=== PATIENT | female | born 1975 | race Hispanic/Latino ===

== ENCOUNTER → 2019-10-27 15:03 | Outpatient (CLI) | payer OTHER, SELFPAY ==
[2019-10-27 16:41] LABS: Add Manual Diff / Slide Review NO; Basophils Absolute Auto 0 /uL (0-100); Basophils Percent Auto 0.4 % (0-2); Eosinophils Absolute Auto 100 /uL (0-450); Eosinophils Percent Auto 1.2 % (2-4); Hematocrit 32.2 % (36-46); Hemoglobin 10.3 g/dL (12.0-16.0); Lymphocytes Absolute Auto 2000 /uL (1100-4500); Lymphocytes Percent Auto 25.5 % (25-40); Mean Corpuscular Volume 96.8 fL (80-100); Monocytes Absolute Auto 500 /uL (0-900); Monocytes Percent Auto 6.3 % (3-14); Neutrophils Absolute Auto 5200 /uL (1500-7000); Neutrophils Percent Auto 66.6 % (50-75); Platelet Count 278 X10^3/uL (150-400); Red Blood Cell Count 3.32 X10^6/uL (4.0-5.2); Red Cell Distribution Width 20.8 % (11.6-14.8); White Blood Cell Count 7.8 X10^3/uL (4.5-11.0)
[2019-10-27 17:50] LABS: Anisocytosis 1+; Stomatocytes 1+
== END ==
PROVIDERS: PCP Family Medicine; Referring Provider Specialist; Visit Provider Specialist
DX: D62 Acute posthemorrhagic anemia (principal)
CPT/HCPCS: 36415; 85025

== ENCOUNTER → 2019-11-08 10:56 | Outpatient (CLI) | payer OTHER, SELFPAY ==
[2019-11-08 22:16] LABS: COVID19 Sendout Not Detected (Not Detect)
== END ==
PROVIDERS: PCP Family Medicine; Visit Provider Registered Nurse
DX: Z01.812 Encounter for preprocedural laboratory examination (principal)
CPT/HCPCS: 87635

== ENCOUNTER 2019-11-10 10:17 | Day surgery (SDC) | payer OTHER, SELFPAY ==
[2019-11-02 08:35] VITALS: BMI 34.2
[2019-11-10] VITALS (11 sets, daily range): BP systolic 125–169; BP diastolic 68–93; PULSE 63–80; RESP 9–22; TEMP 36.1–37; O2SAT 96–100; BMI 33.0
--- NOTE | 2019-11-10 | PATH_ITS ---
[facility] Accession Number: [id number] . 01 Material submitted: . PART A: cervix - EXTERNAL CERVICAL OS PART B: cervix - EXTERNAL CERVICAL OS AT 9 O'CLOCK PART C: cervix - DEEP EXTERNAL CERVICAL OS PART D: endocervix - ENDOCERVICAL CURETTINGS PART E: endometrium - ENDOMETRIAL CURETTINGS . 02 Diagnosis: A. Cervix, External Os, Excision: High-grade squamous intraepithelial neoplasia (ANDRIA 2) present at endocervical inked margin. Active inflammation is present consistent with prior procedure. No evidence of invasive carcinoma. . B. Cervix, External Os At 9 O'Clock, Excision: Transformation zone mucosa with reactive epithelial and stromal changes consistent with prior procedure. No evidence of neoplasia. . C. Cervix, Deep External Os, Excision: Endocervical mucosa with no evidence of neoplasia. . D. Endocervical, Curettage: Squamous and endocervical epithelium with no evidence of neoplasia. . E. Endometrium, Biopsy: Disordered proliferative endometrium with patchy features suggestive of glandular and stromal breakdown. Adenomyosis. No evidence of neoplasia or hyperplasia. [facility] 11/15/2019 1350 Local . 02 Electronically signed: . Leanne Mao MD, Pathologist NPI- [id number] . 01 Gross description: . (A) Received in formalin, labeled #1 external cervical os, suture @ 6 o'clock, is a piece of cervical tissue (2.5 x 1.4 x 0.5 cm) with smith-white smooth shiny mucosa. No nodules, masses or lesions are identified. A suture is present designating 6 o'clock. The possible endocervical margin is inked orange and the possible ectocervical and stromal margins are inked blue. Serially sectioned and entirely submitted from left to right (presumably 9 to 3 o'clock) as follows: (A1) 9 to 6 o'clock; (A2) 6 to 3 o'clock. (B) Received in formalin, labeled external os @ 9 o'clock, is an unoriented piece of cervical tissue (1.3 x 0.5 x 0.2 cm) with fisher-pink smooth shiny mucosa. No nodules, masses or lesions are identified. The tissue cannot be oriented; therefore, the resection margin is inked blue. Serially sectioned and entirely submitted in cassette B1. (C) Received in formalin, labeled deep external os, is an unoriented intact cervical excision (diameter-1.7 cm by 1.0 cm, 0.2 cm in depth) with smith-white smooth shiny mucosa. No nodules, masses or lesions are identified. The possible endocervical margin is inked orange and the possible ectocervical and stromal margins are inked blue. Radially sectioned and entirely submitted in cassettes C1-C3. (D) Received in formalin, labeled endocervical curetting, is turbid mucoid material containing multiple fragments of red-brown tissue (2.0 x 0.5 x 0.1 cm in aggregate). Filtered and entirely submitted in cassette D1. (E) Received in formalin, labeled endometrial curetting, are multiple pieces of smith rubbery tissue (5.5 x 2.5 x 0.3 cm in aggregate). Entirely submitted in cassettes E1-E3. ([id number]) /MRV 11/11/2019 1250 Local . 02 Microscopic: . D. A p16 immunohistochemical stain was performed to characterize cells of interest, and is negative for block nuclear and cytoplasmic reactivity in the area of interest, which mitigates against and interpretation of high-grade squamous intraepithelial lesion. The control stain showed appropriate reactivity. . * This test was developed and its performance characteristics determined by [employer]. It has not been cleared or approved by the U.S. Food and Drug Administration. The FDA has determined that such clearance or approval is not necessary. This test is used for clinical purposes. It should not be regarded as investigational or for research. . . 02 Pathologist provided ICD-10: N87.1 . 02 CPT . 152014, 346460, 722254, 713717, 103035, X17244 Performed at: 01 [facility] [address] [place] [address], [place], [place] [id number] MD Caden Ashley MD Phone: [phone] Performed at: [address] [facility] [id number] [place], [place] [id number] MD Leanne Mao MD Phone: [phone]
[2019-11-10] MEDS: LACTATED RINGERS 1,000 ML 42 ML IV ×2 (10:46→12:45)
[2019-11-10] MEDS: ACETAMINOPHEN 325 MG TABLET 975 MG PO (10:48)
[2019-11-10] MEDS: GABAPENTIN 300 MG CAPSULE PO (10:48)
--- NOTE | 2019-11-10 11:40 | PM.PREOP ---
Pre-operative Note COVID-19 COVID-19 status: Negative Result date/Date tested (Pos, Neg/Pending): 11/08/19 Interval Note History & Physical reviewed/Exam performed by Physician: Yes Changes to H&P: Yes H&P completed within 30 days and has changed as indicated here:: Patient with ANDRIA 3 on colpo directed biopsies. We will perform a LEEP procedure as well as a hysteroscopy. The procedure discussed with the patient and the consent form addendum signed with the patient
[2019-11-10] MEDS: BUPIVACAINE 0.5% W/ EPI (PF) 10 ML VIAL 30 ML INJ (12:45)
--- NOTE | 2019-11-10 12:54 | PM.OP.1 ---
Operative Date/Time/Diagnoses Date of procedure: 11/10/19 Time of procedure: 12:54 Pre-op diagnosis: Menorrhagia and ANDRIA 3 on colpo directed biopsy Post-op diagnosis: same Procedure & Clinicians Procedure: LEEP procedure, hysteroscopy D&C with resection of endometrial polyp Same procedure as scheduled: Yes Indications: Menorrhagia unresponsive to Provera therapy, ANDRIA 3 on colpo directed biopsies Surgeon: Mayte Camp Click Yes if Unassisted: Yes Anesthesia Type: General Operative Notes Findings: Normal exam under anesthesia. Endometrial polyp on the anterior wall of the uterus near the internal os Closure Type: not applicable Specimen(s): other (External LEEP procedure, 9:00 a.m. biopsy, ECC and endometrial curettage and biopsy) Estimated Blood Loss (mL): 10 Blood products transfused: none Procedure in detail: Patient was brought to the operating room she underwent general. She was placed in low stirrups. A coated bivalve speculum was placed into the vagina. The cervix was injected with 10 cc 0.5% Marcaine with epinephrine. A coated single-tooth tenaculum was placed on the anterior lip of the cervix. The loop set at 60 W of cutting was used to remove the entire squamocolumnar junction. There was minimal tissue at 9:00 a.m. so no additional biopsy at 9:00 a.m. was performed. A slightly deeper section was taken of the endocervical canal. An ECC was performed. The tissue was cauterized external to the LEEP with ball cautery to extend the treatment zone. The uterus dilated to #8 Hegar dilator. The hysteroscope was placed into the uterus with a sorbitol solution running and under constant suction. The resecting loop set at 80 W of cutting was used to resect the polyp down to the level of the endometrium. A endometrial curettage was performed. The polyp and the endometrial curettage was sent to pathology. The patient went to recovery room in good condition counts of instruments and sponges were correct. The sorbitol solution I=O approximately 2000 mL. Complications: none Post-operative Condition: stable Disposition: same day surgery Plan for aftercare: Treatment and follow-up based on biopsy results. Patient is to call if she has heavy bleeding.
[2019-11-10] MEDS: fentaNYL 100 MCG/2 ML INJ IV ×2 (13:04→13:16)
[2019-11-10] MEDS: OXYCODONE IR 5 MG TABLET PO (13:39)
--- NOTE | 2019-11-10 14:06 | SUR.PHASEII ---
Pt was able to successfully void. Tolerated oral pain medication well. Dr Camp notified of pts pending departure.
== END 2019-11-10 14:22 | disposition home or self-care (01) ==
PROVIDERS: PCP Family Medicine; Referring Provider Specialist; Visit Provider Specialist
PROC: 0UDB8ZZ Extraction of Endometrium, Via Natural or Artificial Opening Endoscopic (ICD-10-PCS; CPT 58558; principal; 2019-11-10 11:30)
PROC: 0UBC7ZZ Excision of Cervix, Via Natural or Artificial Opening (ICD-10-PCS; CPT 57522; 2019-11-10 11:30)
DX: N87.1 Moderate cervical dysplasia (principal); F17.210 Nicotine dependence, cigarettes, uncomplicated; F41.9 Anxiety disorder, unspecified; D62 Acute posthemorrhagic anemia
CPT/HCPCS: 58558; 57522; J1100; J1885; J2250; J2405; J2704; J3010

== ENCOUNTER 2020-02-02 01:13 | Emergency (ER) | payer OTHER, SELFPAY ==
[2020-02-02] VITALS (7 sets, daily range): BP systolic 163–195; BP diastolic 72–104; PULSE 60–77; RESP 26; TEMP 36.7; O2SAT 96–98
--- NOTE | 2020-02-02 01:17 | ED.HA ---
HPI - Headache General Chief Complaint: Headache Stated Complaint: head pain left side,shortness of breath Time Seen by Provider: 02/02/20 01:17 Source: patient and family Mode of arrival: Ambulatory Limitations: no limitations History of Present Illness HPI Narrative: 44-year-old female smoker with no chronic medical problems presents with her and a chief complaint of a left-sided headache, 10/10, that started a few hours ago. She was driving and not in any particular stressful moment. She denies other neurologic symptoms such as blurred vision, trouble speech nor numbness, tingling or weakness. She denies any fever or chills and has no neck pain. She does state that when the headache becomes severe that she develops some chest pressure. She denies any history of blood pressure problems. She denies any new medications or dietary change. MD Complaint: headache Onset (ago): hour(s) Onset description: sudden Location: left Severity: moderate Quality: aching and throbbing Relieving factors: nothing Exacerbating factors: none Context: occurred at rest Other symptoms: chest pain Treatments prior to arrival: none Related Data Home Medications Medication Instructions Recorded Confirmed ferrous fumarate 325 mg (106 mg 325 mg PO BID 10/27/19 11/10/19 iron) tablet Centrum Women 1 tab PO DAILY 11/10/19 11/10/19 ascorbic acid (vitamin C) [Vitamin 1,000 mg PO DAILY 11/10/19 11/10/19 C] Previous Rx's Medication Instructions Recorded amlodipine 5 mg PO DAILY #20 tab 02/02/20 Allergies Allergy/AdvReac Type Severity Reaction Status Date / Time No Known Drug Allergies Allergy Verified 11/10/19 10:50 Review of Systems Constitutional Constitutional: Denies chills, Denies fatigue, Denies fever(s), Denies frequent falls, Reports headache(s), Denies lethargy and Denies weakness Eyes Eyes: Denies change in vision, Denies eye discharge, Denies irritation and Denies loss of vision ENT Ears, Nose, Mouth, and Throat: Denies change in voice, Denies dizziness, Reports headache(s), Denies neck pain, Denies sore throat and Denies throat swelling Cardiovascular Cardiovascular: Reports chest pain, Denies irregular heart rhythm, Denies lightheadedness, Denies palpitations, Denies dyspnea, Denies dyspnea on exertion and Denies orthopnea Respiratory Respiratory: Denies cough, Denies dyspnea, Denies dyspnea on exertion and Denies wheezing Gastrointestinal Gastrointestinal: Denies abdominal pain, Denies change in bowel habits, Denies diarrhea, Denies nausea and Denies vomiting Musculoskeletal Musculoskeletal: Denies neck pain and Denies numbness Integumentary/Breasts Skin/Breast: Denies pruritus, Denies erythema, Denies rash and Denies wounds Neurologic Neurologic: Denies behavioral changes, Denies confusion, Denies dizziness, Denies frequent falls, Reports headache(s), Denies loss of vision, Denies numbness and Denies weakness Psychiatric Psychiatric: Denies anxiety, Denies behavioral changes, Denies confusion, Denies depression, Denies homicidal ideation and Denies suicidal ideation Endocrine Endocrine: Denies fatigue, Denies flushing and Denies palpitations Hematologic/Lymphatic Hematologic/Lymphatic: Denies easy bruising Allergic/Immunologic Allergic/Immunologic: Denies urticaria, Denies throat swelling and Denies wheezing Patient History Medical History Anxiety (Acute) delivery delivered (Acute) Surgical History Anesthesia (Resolved) History of appendectomy (Resolved ~1985) History of appendectomy (Acute) History of section (Resolved ~1999) Family History Father Accident Mother Cancer Hypertension Stroke Brother Cancer Brother Diabetes mellitus Hypertension Social History household members: spouse Smoking Status: Current every day smoker alcohol intake: current Smoking Status: Current every day smoker alcohol intake frequency: a few times a month Substance Use Type: does not use Exam Narrative Exam Narrative: GENERAL: [] year old patient appears stated age. Well-nourished, well-developed patient, in mild distress. HEAD: Atraumatic. Normocephalic. EYES: Pupils equal round and reactive. Extraocular motions intact. No scleral icterus. No injection or drainage. ENT: Nose without bleeding, purulent drainage. Throat without erythema, tonsillar hypertrophy or exudate. Airway patent. NECK: Trachea midline. Non tender CARDIOVASCULAR: Regular rate and rhythm without murmurs, gallops, or rubs. RESPIRATORY: Clear to auscultation. Breath sounds equal bilaterally. No wheezes, rales, or rhonchi. GASTROINTESTINAL: Abdomen soft, non-tender, nondistended. EXTREMITIES: No edema or joint tenderness. BACK: Nontender without deformity or crepitance. No flank tenderness. NEURO: AOx3. SKIN: No rash or erythema of visible areas NIH Stroke Scale 1a. LOC: Patient is alert and keenly responsive (0) 1b. LOC Questions: Patient answers both LOC questions accurately (0) 1c. LOC Commands: Patient performs both tasks correctly (0) 2. Best Gaze: Normal (0) 3. Visual: No visual loss (0) 4. Facial palsy: Normal symmetrical movements (0) 5. Motor arm: No drift (0) 6. Motor leg: No drift (0) 7. Limb ataxia: Absent (0) 8. Sensory: Normal (0) 9. Best language: No aphasia; normal (0) 10. Dysarthria: Normal (0) 11. Extinction and inattention: No abnormality (0) NIHSS: 0 Initial Vital Signs Initial Vital Signs: Vital Signs Temperature 98.0 F 02/02/20 01:25 Pulse Rate 65 02/02/20 01:25 Blood Pressure 195/104 H 02/02/20 01:25 Pulse Oximetry 97 02/02/20 01:25 Course Orders Ordered: ED Orders 02/02/20 01:30 CT head/brain wo con Stat XR chest 1V Stat Basic Metabolic Panel Stat Complete Blood Count AUTO DIFF Stat NT-proBNP (BNP-Adult 18+) Stat Prothrombin Time INR Stat Troponin & CK Cardiac Panel Stat 02/02/20 01:42 EKG-12 Lead Stat Sodium Chloride (Normal Saline 0.9%) 1,000 mls @ 125 mls/hr IV CONT ANIKA Last Infusion: 02/02/20 04:24 Dose: 125 mls/hr Documented by: Admin: 02/02/20 02:07 Dose: 125 mls/hr Documented by: KETANFARL Discontinued Medications Amlodipine Besylate (Norvasc) 5 mg PO NOW ONE Stop: 02/02/20 02:43 Last Admin: 02/02/20 02:48 Dose: 5 mg Documented by: KETANFARL Diphenhydramine HCl (Benadryl) 25 mg IV NOW ONE Stop: 02/02/20 01:47 Last Admin: 02/02/20 02:06 Dose: 25 mg Documented by: ELDA Hydralazine HCl (Apresoline) 10 mg IV NOW ONE Stop: 02/02/20 02:43 Last Admin: 02/02/20 02:48 Dose: 10 mg Documented by: ELDA Ketorolac Tromethamine (Toradol) 15 mg IV NOW ONE Stop: 02/02/20 01:47 Last Admin: 02/02/20 02:06 Dose: 15 mg Documented by: ELDA Metoclopramide HCl (Reglan) 10 mg IV NOW ONE Stop: 02/02/20 01:47 Last Admin: 02/02/20 02:06 Dose: 10 mg Documented by: ELDA Reevaluation(s) Reevaluation #1: Patient re-evaluated once blood pressure down in the 160s. Her headache is much better but still having some symptoms Time: 01:56 Reevaluation #2: headache worsening again, BP found to be 215. Patient given amlodipine and hydralazine with sustained improvement in BP and WATTERS Vital Signs Vital signs: Vital Signs - 8 hr 02/02/20 01:25 02/02/20 01:30 02/02/20 01:31 Temperature 98.0 F Pulse Rate 65 77 77 Respiratory Rate Blood Pressure 195/104 H 163/72 H Pulse Oximetry 97 98 98 02/02/20 02:00 02/02/20 02:46 02/02/20 02:48 Temperature Pulse Rate 60 61 61 Respiratory Rate 26 H Blood Pressure 170/74 H 170/74 H Pulse Oximetry 96 98 02/02/20 03:53 Temperature Pulse Rate 66 Respiratory Rate Blood Pressure 165/75 H Pulse Oximetry 97 MDM - Headache Lab Data Result diagrams: 02/02/20 01:30 02/02/20 01:30 Labs: Lab Results 02/02/20 02/02/20 02/02/20 Range/Units 01:30 01:30 01:30 WBC 8.7 (4.5-11.0) X10^3/uL RBC 4.43 (4.0-5.2) X10^6/uL Hgb 14.5 (12.0-16.0) g/dL Hct 41.7 (36-46) % MCV 94.1 (80-100) fL MCH 32.8 (26-34) PG MCHC 34.9 (30-36) % RDW 12.9 (11.6-14.8) % Plt Count 216 (150-400) X10^3/uL Neut % (Auto) 82.6 H (50-75) % Lymph % (Auto) 13.0 L (25-40) % [place] % (Auto) 3.4 (3-14) % Eos % (Auto) 0.3 L (2-4) % Baso % (Auto) 0.7 (0-2) % Neut # (Auto) 7200 H (5823-7852) /uL Lymph # (Auto) 1100 (3006-6973) /uL [place] # (Auto) 300 (0-900) /uL Eos # (Auto) 0 (0-450) /uL Baso # (Auto) 100 (0-100) /uL PT 11.6 (10.1-12.7) SECONDS INR 1.0 (0.9-1.3) Sodium 136 L (137-145) mmol/L Potassium 4.3 (3.4-5.1) mmol/L Chloride 103 (98-107) mmol/L Carbon Dioxide 22 (22-32) mmol/L BUN 11 (7-17) mg/dL Creatinine 0.40 L (0.52-1.04) mg/dL Estimated GFR > 60.0 (>60) mL/min BUN/Creatinine Ratio 27.5 H (6-22) Glucose 139 H (70-100) mg/dL Calcium 10.1 (8.4-10.2) mg/dL Total Creatine Kinase 38 (30-135) U/L CK-MB (CK-2) TNP CK-MB (CK-2) Rel Index TNP Troponin I < 0.012 (0.01-0.034) ng/mL NT-Pro-B Natriuret Pep 54 (<125) pg/mL Imaging Data CT scan - head: Radiologist's Impression: NAP Discharge Plan Departure Patient Disposition: Home Clinical Impression: Headache Qualifiers: Headache type: unspecified Headache chronicity pattern: acute headache Intractability: not intractable Qualified Code(s): R51 - Headache Hypertension Qualifiers: Hypertension type: unspecified Qualified Code(s): I10 - Essential (primary) hypertension Discharge Date/Time: 02/02/20 04:16 Instructions: Essential Hypertension, DI for Headache Activity Restrictions/Additional Instructions: *You have been diagnosed with [hypertension and headache] *What to do: *Take medications as directed *Follow up with your primary care provider in 2-3 days, call for an appointment. Let them know you were seen in the Emergency Department and that we ask that you be seen in follow up *Return to ER if you should have any new, worsening or concerning symptoms Prescriptions: New amlodipine 5 mg tablet 5 mg PO DAILY Qty: 20 RF: 0 No Action ferrous fumarate 325 mg (106 mg iron) tablet 325 mg PO BID RF: 0 ascorbic acid (vitamin C) [Vitamin C] 1,000 mg Tablet 1,000 mg PO DAILY RF: 0 Centrum Women 18-400 mg-mcg Tablet 1 tab PO DAILY RF: 0 Referrals: Zenaida Oakes MD [Primary Care Provider] -
--- NOTE | 2020-02-02 01:30 | DI.RAD.S_ITS ---
PROCEDURE: XR CHEST 1V INDICATIONS: Shortness of breath TECHNIQUE: One view of the chest was acquired. COMPARISON: None. FINDINGS: Surgical changes and devices: None. Lungs and pleura: Lungs are clear. No pleural effusions or pneumothorax. Mediastinum: Mediastinal contours appear normal. Heart size is normal. Bones and chest wall: No suspicious bony lesions. Overlying soft tissues appear unremarkable. IMPRESSION: No acute cardiopulmonary disease process. Dictated by: Juliet Alexander MD, PhD on 02/02/2020 at 8:18 Approved by: Juliet Alexander MD, PhD on 02/02/2020 at 8:19
--- NOTE | 2020-02-02 01:30 | DI.CT.S_ITS ---
PROCEDURE: CT HEAD/BRAIN WO CON INDICATIONS: severe headache, hypertensive (195/110) TECHNIQUE: Noncontrast 4.5 mm thick angled axial sections acquired from the foramen magnum to the vertex, with coronal and sagittal reformats. For radiation dose reduction, the following was used: automated exposure control, adjustment of mA and/or kV according to patient size. COMPARISON: None. FINDINGS: Image quality: Excellent. CSF spaces: Basal cisterns are patent. No extra-axial fluid collections. Ventricles are normal in size and shape. Brain: No midline shift. No intracranial masses or hemorrhage. Alberts-white matter interface is normal. Skull and face: Calvarium and visualized facial bones are intact, without suspicious lesions. Sinuses: Visualized sinuses and mastoids are clear. IMPRESSION: No acute intracranial disease process. Dictated by: Juliet Alexander MD, PhD on 02/02/2020 at 7:09 Approved by: Juliet Alexander MD, PhD on 02/02/2020 at 7:10
[2020-02-02 01:46] LABS: Add Manual Diff / Slide Review NO; Basophils Absolute Auto 100 /uL (0-100); Basophils Percent Auto 0.7 % (0-2); Eosinophils Absolute Auto 0 /uL (0-450); Eosinophils Percent Auto 0.3 % (2-4); Hematocrit 41.7 % (36-46); Hemoglobin 14.5 g/dL (12.0-16.0); Lymphocytes Absolute Auto 1100 /uL (1100-4500); Mean Corpuscular HGB Conc 34.9 % (30-36); Mean Corpuscular Hemoglobin 32.8 PG (26-34); Mean Corpuscular Volume 94.1 fL (80-100); Monocytes Absolute Auto 300 /uL (0-900); Monocytes Percent Auto 3.4 % (3-14); Neutrophils Absolute Auto 7200 /uL (1500-7000); Neutrophils Percent Auto 82.6 % (50-75); Platelet Count 216 X10^3/uL (150-400); Red Blood Cell Count 4.43 X10^6/uL (4.0-5.2); Red Cell Distribution Width 12.9 % (11.6-14.8); White Blood Cell Count 8.7 X10^3/uL (4.5-11.0)
[2020-02-02 01:48] LABS: Prothrombin Time 11.6 SECONDS (10.1-12.7)
[2020-02-02 01:53] LABS: BUN Creatinine Ratio 27.5 (6-22); Blood Urea Nitrogen 11 mg/dL (7-17); Calcium 10.1 mg/dL (8.4-10.2); Carbon Dioxide 22 mmol/L (22-32); Chloride 103 mmol/L (98-107); Creatine Kinase 38 U/L (30-135); Estimated Glomerular Filt Rate > 60.0 mL/min (>60); Glucose 139 mg/dL (70-100); HEMOLYSIS 49 (0-50); Potassium 4.3 mmol/L (3.4-5.1); Sodium 136 mmol/L (137-145)
[2020-02-02 02:06] LABS: NT-proBNP (BNP-Adult 18+) 54 pg/mL (<125); Troponin I < 0.012 ng/mL (0.01-0.034)
[2020-02-02] MEDS: KETOROLAC 60 MG/2 ML VIAL 15 MG IV (02:06)
[2020-02-02] MEDS: diphenhydrAMINE 50 MG/ML VIAL 25 MG IV (02:06)
[2020-02-02] MEDS: METOCLOPRAMIDE 10 MG/2 ML INJ IV (02:06)
[2020-02-02] MEDS: SODIUM CHLORIDE 0.9% 1,000 ML 125 ML IV (02:07)
[2020-02-02] MEDS: AMLODIPINE 2.5 MG TABLET 5 MG PO (02:48)
[2020-02-02] MEDS: HYDRALAZINE 20 MG/ML VIAL 10 MG IV (02:48)
== END 2020-02-02 04:16 | disposition home or self-care (01) ==
PROVIDERS: Emergency Provider Emergency Medicine; PCP Family Medicine
DX: R51 Headache (principal); I10 Essential (primary) hypertension; R07.9 Chest pain, unspecified; R06.02 Shortness of breath
CPT/HCPCS: 36415; 70450; 71045; 80048; 82550; 83880; 84484; 85025; 85610; 93005; 96361; 96374; 96375; 99284; J0360; J1200; J1885; J2765

== ENCOUNTER 2021-11-23 16:11 | Emergency (ER) | payer OTHER, SELFPAY ==
[2021-11-23 16:26] VITALS: BP 166/82; PULSE 72; RESP 18; TEMP 36.8; O2SAT 97; BMI 29.9
[2021-11-23] MEDS: IBUPROFEN 400 MG TABLET 600 MG PO (17:52)
[2021-11-23] MEDS: TET,DIPH,PERTUSS(ACELL),VAC/PF 0.5 ML SYRINGE IM (17:52)
[2021-11-23] MEDS: ACETAMINOPHEN 325 MG TABLET 975 MG PO (17:52)
[2021-11-23 18:00] VITALS: BP 166/83; PULSE 67; RESP 18; O2SAT 99
--- NOTE | 2021-11-23 20:57 | ED.WOUNDLAC ---
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 She states that it bled for a second and stopped bleeding on it's own. She denies any anticoagulant use, she denies a headache, nausea, vomiting, dizziness, vision changes, weakness, sensation changes. She is ambulatory with a steady gait, denies any loss of consciousness, denies when her last tetanus was given. She denies any neck pain. She denies taking any medication prior to arrival. Patient denies any medication at home other than multivitamins and iron. Related Data Home Medications Medication Instructions Recorded Confirmed ascorbic acid (vitamin C) 1,000 mg 1,000 mg PO DAILY 11/10/19 05/17/20 tablet (Vitamin C) multivitamin-ferrous 1 tab PO DAILY 11/10/19 05/17/20 fumarate-folic acid 18 mg-400 mcg tablet (Centrum Women) Allergies Allergy/AdvReac Type Severity Reaction Status Date / Time No Known Drug Allergies Allergy Verified 11/23/21 16:26 Review of Systems <RADHA Mills - Last Filed: 11/23/21 21:03> Review of Systems Narrative: General: denies fever, chills Head/Neck: denies headache, neck pain, endorses tenderness to her scalp where she hit her head today with a bump Eyes: denies visual changes, eye pain Cardio: denies chest pain, palpitations Respiratory: denies shortness of breath, cough GI: denies abdominal pain, nausea, vomiting, or diarrhea : denies dysuria, hematuria MSK: denies joint pain, muscle weakness Skin: denies rash, itching Neuro: denies numbness, tingling Patient History <RADHA Mills - Last Filed: 11/23/21 21:03> Medical History Anxiety delivery delivered Pap smear of cervix with ASCUS, cannot exclude HGSIL Surgical History Anesthesia History of appendectomy (~1985) History of appendectomy History of section (~1999) Family History Father Accident Mother Cancer Hypertension Stroke Brother Cancer Brother Diabetes mellitus Hypertension Social History household members: spouse Smoking Status: Former smoker alcohol intake: current Smoking Status: Former smoker alcohol intake frequency: a few times a month Substance Use Type: does not use Exam <RADHA Mills - Last Filed: 11/23/21 21:03> Narrative Exam Narrative: Independently reviewed vitals signs and nursing notes. General: Awake, alert, nontoxic, no cardiorespiratory distress Head/Neck: Neck is supple, scalp with a small 1 cm laceration which is scabbed over, no bleeding, no laceration repair necessary, small contusion approximately 1 in, no skull depression or palpable fracture neck full range of motion Eyes: EOMI, conjunctiva normal Ears: TM normal bilaterally, no cerumen present in bilateral canals Nose: nares patent, no rhinorrhea Mouth/Throat: moist mucus membranes, posterior pharynx normal, no oral lesions Cardio: Regular rate and rhythm, no peripheral edema Respiratory: respirations unlabored without wheezing, stridor, or rales. No retractions. GI: Abdomen soft, nontender MSK: Moves all extremities, neurovascularly intact Skin: Normal capillary refill, no rash Neuro: Normal speech and cognition, normal gait Initial Vital Signs Initial Vital Signs: Vital Signs Temperature 98.2 F 11/23/21 16:26 Pulse Rate 72 11/23/21 16:26 Respiratory Rate 18 11/23/21 16:26 Blood Pressure 166/82 H 11/23/21 16:26 Pulse Oximetry 97 11/23/21 16:26 <Viraj Fernandez DO - Last Filed: 11/24/21 07:09> Initial Vital Signs Initial Vital Signs: Vital Signs Temperature 98.2 F 11/23/21 16:26 Pulse Rate 72 11/23/21 16:26 Respiratory Rate 18 11/23/21 16:26 Blood Pressure 166/82 H 11/23/21 16:26 Pulse Oximetry 97 11/23/21 16:26 Course <BULMARO MillsP - Last Filed: 11/23/21 21:03> Orders Ordered: Discontinued Medications Acetaminophen (Acetaminophen 325 Mg Tablet) 975 mg PO NOW ONE Stop: 11/23/21 17:39 Last Admin: 11/23/21 17:52 Dose: 975 mg Documented by: WIN Diphtheria/Tetanus/Acell Pertussis (Tet,Diph,Pertuss(Acell),Vac/Pf 0.5 Ml Syringe) 0.5 ml IM .ONCE ONE Stop: 11/23/21 16:33 Last Admin: 11/23/21 17:52 Dose: 0.5 ml Documented by: WIN Ibuprofen (Ibuprofen 400 Mg Tablet) 600 mg PO NOW ONE Stop: 11/23/21 17:39 Last Admin: 11/23/21 17:52 Dose: 600 mg Documented by: WIN Lidocaine/Sodium Bicarbonate (Lido 1%/Sod Bicarb 8.4% (10ml) 10 Ml Syringe) 10 ml INJ NOW ONE Stop: 11/23/21 17:34 Last Admin: 11/23/21 17:46 Dose: Not Given Documented by: WIN Vital Signs Vital signs: Vital Signs - 8 hr 11/23/21 16:26 11/23/21 18:00 Temperature 98.2 F Pulse Rate 72 67 Respiratory Rate 18 18 Blood Pressure 166/82 H 166/83 H Pulse Oximetry 97 99 <Viraj Fernandez DO - Last Filed: 11/24/21 07:09> Orders Ordered: Discontinued Medications Acetaminophen (Acetaminophen 325 Mg Tablet) 975 mg PO NOW ONE Stop: 11/23/21 17:39 Last Admin: 11/23/21 17:52 Dose: 975 mg Documented by: WIN Diphtheria/Tetanus/Acell Pertussis (Tet,Diph,Pertuss(Acell),Vac/Pf 0.5 Ml Syringe) 0.5 ml IM .ONCE ONE Stop: 11/23/21 16:33 Last Admin: 11/23/21 17:52 Dose: 0.5 ml Documented by: WIN Ibuprofen (Ibuprofen 400 Mg Tablet) 600 mg PO NOW ONE Stop: 11/23/21 17:39 Last Admin: 11/23/21 17:52 Dose: 600 mg Documented by: WIN Lidocaine/Sodium Bicarbonate (Lido 1%/Sod Bicarb 8.4% (10ml) 10 Ml Syringe) 10 ml INJ NOW ONE Stop: 11/23/21 17:34 Last Admin: 11/23/21 17:46 Dose: Not Given Documented by: WIN Vital Signs Vital signs: Vital Signs - 8 hr 11/23/21 16:26 11/23/21 18:00 Temperature 98.2 F Pulse Rate 72 67 Respiratory Rate 18 18 Blood Pressure 166/82 H 166/83 H Pulse Oximetry 97 99 [facility] - Wound/Laceration <BULMARO MillsP - Last Filed: 11/23/21 21:03> [facility] Narrative Medical decision making narrative: This is a 46-year-old female presents to the emergency department for evaluation of her scalp laceration after she hit her head at work today on a washer when she stood up from a bent over position. Her tetanus was updated today, she was given ibuprofen 600 mg and acetaminophen 975 mg for pain. She has a small 1 cm laceration which was scabbed over by the time she got to the emergency department without bleeding, wound edges were well approximated, this is superficial and did not need laceration repair. No glue or staple was needed either. Patient denies a headache, dizziness, vision changes, neck pain, eye pain or eye pain with movement. Discussed symptoms of concussions and what to look out for, discussed strict return precautions for any worsening headache, vomiting, vision changes or other concern. [id number]. Patient is appropriate and amenable to discharge home. Vital signs are stable on repeat examination is unremarkable. Patient has been informed of results. Patient has been given strict return to ER precautions for any new or worsening symptoms. Patient understands to follow up closely with outpatient providers as instructed. Patient understands plan and agrees to discharge home. All questions and concerns answered at this time. Discharge Plan Departure Patient Disposition: Home Clinical Impression: Work related injury Head injury, acute Qualifiers: Encounter type: initial encounter Qualified Code(s): S09.90XA - Unspecified injury of head, initial encounter Instructions: Concussion, DI for Laceration Repair, Closed Head Injury Activity Restrictions/Additional Instructions: *You have been diagnosed with a small laceration on the right side of your scalp which has scabbed over and is no longer bleeding. Please do not wash your hair or bump your head anymore today, you likely do not need sutures if this is not start bleeding again. If it does, please use a cool compress and apply pressure until it stops bleeding, you likely will not need any sutures for this. Please take Tylenol and ibuprofen as needed for your pain,, 600 mg of ibuprofen or 650 of Tylenol every 6 hours, your given this at 0545 tonight, next dose is would not be until 2345 hours. Please take tomorrow off of work, if you continue to have a headache, this may be a concussion. Please slightly low today, take it easy, rest, stop any activities that bring on a headache. If you start vomiting or had vision changes please return to the emergency department. I hope you feel better soon. [id number]. *What to do: *Please continue to take your regular medications as directed. [ ] New medication prescriptions sent to your pharmacy: [ ] [ ] New medication written as a paper prescription [ ] No new medications given *Please follow up with your primary care provider in 2-3 days, call for an appointment. Let them know you were seen in the Emergency Department and that we asked that you be seen for follow-up. We will electronically transmit a record of today's note if your PCP is in our system *If you do not have a primary care provider please contact [phone] to establish care with one of the [facility] primary care providers. *Return to Emergency Department if you should have any new, worsening or concerning symptoms, such as [fever greater than 101F, chills, worsening pain, persistent vomiting or other bothersome symptoms] Prescriptions: No Action ascorbic acid (vitamin C) [Vitamin C] 1,000 mg Tablet 1,000 mg PO DAILY 0RF Centrum Women 18-400 mg-mcg Tablet 1 tab PO DAILY 0RF <Viraj Fernandez, DO - Last Filed: 11/24/21 07:09> [facility]: Dr Fernandez Co-Sign Statement: I was available for consultation during this patient's emergency department visit. This chart is signed by myself for administrative purposes only. I did not have direct contact with this patient during this visit. They were seen independently by the APC.
== END 2021-11-23 18:01 | disposition home or self-care (01) ==
PROVIDERS: Emergency Provider Nurse Practitioner Critical Care Medicine
DX: S01.01XA Laceration without foreign body of scalp, initial encounter (principal); W22.8XXA Striking against or struck by other objects, initial encounter; Y99.0 Civilian activity done for income or pay; Z23 Encounter for immunization
CPT/HCPCS: 90471; 99283; 99284; 90715